=== PATIENT | male | born 1965 | race Caucasian/White ===

== ENCOUNTER 2023-06-20 00:08 | Emergency (ER) | payer BC, SELFPAY ==
[2023-06-20] VITALS (10 sets, daily range): BP systolic 125–143; BP diastolic 74–98; PULSE 81–122; RESP 18; TEMP 36.6; O2SAT 93–98; BMI 26.3
[2023-06-20 00:53] LABS: Basophils Absolute Auto 0.03 K/uL (0.00-0.30); Basophils Percent Auto 0.5 % (0.0-3.0); Eosinophils Absolute Auto 0.27 K/uL (0.00-0.50); Eosinophils Percent Auto 4.6 % (0.0-7.0); Hematocrit 45.6 % (37.0-53.0); Hemoglobin* 15.5 gm/dL (13.5-17.5); Immature Granulocytes Abs Auto 0.05 K/uL (0.00-0.30); Immature Granulocytes Pct Auto 0.8 %; Lymphocytes Absolute Auto 1.54 K/uL (0.90-2.90); Lymphocytes Percent Auto 26.1 % (20-44); Mean Corpuscular HGB Conc 34 gm/dL (32-36); Mean Corpuscular Hemoglobin 28 pg (26-34); Mean Corpuscular Volume 83 fL (80-100); Monocytes Percent Auto 10.7 % (0.0-11.0); Neutrophils Absolute Auto 3.38 K/uL (1.7-7.0); Neutrophils Percent Auto 57.3 % (42.0-72.0); Platelet Count* 194 K/uL (140-440); Red Blood Count 5.51 m/uL (4.30-5.90)
[2023-06-20 00:58] LABS: Slide Review Reflex No
[2023-06-20 01:09] LABS: Chloride* 110 mmol/L (96-114); Potassium* 3.7 mmol/L (3.6-5.1); Sodium* 143 mmol/L (135-149)
[2023-06-20 01:11] LABS: Creatinine* 0.9 mg/dL (0.5-1.5); Estimated Glomerular Filt Rate 100 ml/min
[2023-06-20 01:12] LABS: Anion Gap 10 mEq/L (7-15); Blood Urea Nitrogen* 19 mg/dL (7-30); Carbon Dioxide* 23 mmol/L (20-32); Glucose* 130 mg/dL (60-115)
[2023-06-20 01:15] LABS: D Dimer Quantitative* < 0.27 ug/ml (0.00-0.50)
[2023-06-20 01:27] LABS: Troponin I* < 0.01 ng/mL (0.01-0.04)
--- NOTE | 2023-06-20 01:37 | ED.GENADULT ---
HPI - General Adult General Date Seen: 06/20/23 Chief complaint: Arrhythmia/Palpitations Stated complaint: heart palpitations and high blood pressure Time Seen by Provider: 06/20/23 00:44 Source: patient and family Mode of arrival: ambulatory Limitations: no limitations History of Present Illness HPI narrative: Patient is a 58-year-old male who is getting ready for bed this evening when he noticed his heart wrap up in start going fast. This happened while rolling over in bed. This is happen before and only lasted for a few seconds but this is been persistent for over an hour. No shortness of breath or chest pain. No history of documented atrial fibrillation. He has recently found in the clinic to be overtreated for his hypothyroidism and his dose was lowered. He currently denies any other symptoms of hyperthyroidism. 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 and famotidine 40 mg at bedtime. He does take Crestor 20 mg daily for hyperlipidemia. Related Data Home Medications Medication Instructions Recorded Confirmed famotidine 40 mg tablet 40 mg PO QPM 06/20/23 06/20/23 levothyroxine 100 mcg tablet 100 mcg PO QAM disorder of thyroid 06/20/23 06/20/23 gland omeprazole 40 mg capsule,delayed 40 mg PO BID 06/20/23 06/20/23 release rosuvastatin 20 mg tablet 20 mg PO QPM cholesterol 06/20/23 06/20/23 Previous Rx's Medication Instructions Recorded metoprolol succinate 50 mg 50 mg PO DAILY #30 tabs 06/20/23 tablet,extended release 24 hr (Toprol XL) Allergies Allergy/AdvReac Type Severity Reaction Status Date / Time No Known Drug Allergies Allergy Verified 06/20/23 00:39 Review of Systems Narrative: Review of systems is outlined above otherwise noted to be negative. PFSH PFSH Social History Smoking Status: Never smoker Do you use any of these nicotine containing products: None How often do you have a drink containing alcohol: never AUDIT-C Alcohol total score: 0 Non-prescribed substance use: denies use Exam Narrative: Exam Narrative: Vitals noted. HEENT: Conjunctiva clear. Neck is supple without adenopathy, thyromegaly, carotid bruit. Lungs: Clear to auscultation in all green. No wheezes, rales, rhonchi. Heart: Irregularly irregular rate and rhythm without murmur. Abdomen: Soft and nontender. No guarding, rigidity, rebound. Bowel sounds are normal. No palpable masses. Extremities: No cyanosis or edema. Good distal pulses. Skin: No abnormalities noted of the exposed skin. Neurologic: Awake, alert, fully oriented. Neurologic exam is nonfocal. Const: Vital Signs, click to edit/add: Vital Signs - 24 hr 06/20/23 00:37 06/20/23 00:42 06/20/23 00:46 Temperature 97.9 F Pulse Rate 116 H Pulse Rate [Pulse Oximeter] 122 H Respiratory Rate 18 Blood Pressure 142/89 H Blood Pressure [Ri ght Upper Arm] 143/98 H Pulse Oximetry 98 98 94 Oxygen Delivery Me thod Room Air 06/20/23 00:47 06/20/23 01:00 06/20/23 01:01 Temperature Pulse Rate 109 H 106 H Pulse Rate [Pulse Oximeter] Respiratory Rate Blood Pressure 125/94 H Blood Pressure [Ri ght Upper Arm] Pulse Oximetry 94 95 Oxygen Delivery Me thod 06/20/23 01:15 06/20/23 01:16 06/20/23 01:55 Temperature 97.9 F Pulse Rate 81 88 Pulse Rate [Pulse Oximeter] 84 Respiratory Rate 18 Blood Pressure 134/95 H Blood Pressure [Ri ght Upper Arm] 125/74 Pulse Oximetry 93 93 98 Oxygen Delivery Me thod Room Air 06/20/23 01:57 Temperature 97.9 F Pulse Rate Pulse Rate [Pulse Oximeter] 84 Respiratory Rate 18 Blood Pressure Blood Pressure [Ri ght Upper Arm] 125/74 Pulse Oximetry Oxygen Delivery Me thod Course Course ED Course: Patient seen and examined. Labs are ordered. EKG shows atrial fibrillation with a rate of around 120. No acute ST or T-wave changes. Reevaluation(s) Reevaluation #1: Patient converted spontaneously to normal sinus rhythm with a rate of 81. Again no ST or T-wave changes noted. Vital Signs Vital signs: Initial Vital Signs Temperature 97.9 F 06/20/23 00:37 Temperature Source Temporal Artery Scan 06/20/23 00:37 Pulse Rate 122 H 06/20/23 00:37 Pulse Rhythm Irregular 06/20/23 00:37 Respiratory Rate 18 06/20/23 00:37 Blood Pressure 143/98 H 06/20/23 00:37 Blood Pressure Mean 113 H 06/20/23 00:37 Blood Pressure Position Sitting 06/20/23 00:37 Pulse Oximetry 98 06/20/23 00:37 Oxygen Delivery Method Room Air 06/20/23 00:37 Vital Signs Temperature 97.9 F 06/20/23 00:37 Pulse Rate 122 H 06/20/23 00:37 Respiratory Rate 18 06/20/23 00:37 Blood Pressure 143/98 H 06/20/23 00:37 Pulse Oximetry 98 06/20/23 00:37 Oxygen Delivery Method Room Air 06/20/23 00:37 Temperature 97.9 F 06/20/23 01:57 Pulse Rate 84 06/20/23 01:57 Respiratory Rate 18 06/20/23 01:57 Blood Pressure 125/74 06/20/23 01:57 Pulse Oximetry 98 06/20/23 01:55 Oxygen Delivery Method Room Air 06/20/23 01:55 Medical Decision Making MDM Narrative Medical decision making narrative: We discussed that he is going to need some follow-up to determine the frequency of his atrial fibrillation and whether not to anticoagulate. With his history of Sylvester's esophagus he cannot take aspirin. At this time with his short interval of atrial fibrillation have opted not to anticoagulate. We will provide some blood pressure and rate control with Toprol-XL 50 mg daily. He will have close follow-up with his PCP in the clinic. He and his are in agreement with this plan. Lab Data Labs: Lab Results 06/20/23 Range/Units 00:35 WBC 5.90 (4.50-11.00) K/uL RBC 5.51 (4.30-5.90) m/uL Hgb 15.5 (13.5-17.5) gm/dL Hct 45.6 (37.0-53.0) % MCV 83 (80-100) fL MCH 28 (26-34) pg MCHC 34 (32-36) gm/dL RDW Coeff of Robert 13.0 (11.5-15.5) % Plt Count 194 (140-440) K/uL Neut % (Auto) 57.3 (42.0-72.0) % Lymph % (Auto) 26.1 (20-44) % [place] % (Auto) 10.7 (0.0-11.0) % Eos % (Auto) 4.6 (0.0-7.0) % Baso % (Auto) 0.5 (0.0-3.0) % Neut # (Auto) 3.38 (1.7-7.0) K/uL Lymph # (Auto) 1.54 (0.90-2.90) K/uL [place] # (Auto) 0.60 (0.00-0.90) K/UL Eos # (Auto) 0.27 (0.00-0.50) K/uL Baso # (Auto) 0.03 (0.00-0.30) K/uL Abs Immat Gran (auto) 0.05 (0.00-0.30) K/uL Imm/Tot Granulo (auto) 0.8 % D-Dimer Quant (PE/DVT) < 0.27 (0.00-0.50) ug/ml Sodium 143 (135-149) mmol/L Potassium 3.7 (3.6-5.1) mmol/L Chloride 110 (96-114) mmol/L Carbon Dioxide 23 (20-32) mmol/L Anion Gap 10 (7-15) mEq/L BUN 19 (7-30) mg/dL Creatinine 0.9 (0.5-1.5) mg/dL Estimated Creat Clear 93.50 Estimated GFR 100 ml/min Glucose 130 H (60-115) mg/dL Calcium 9.0 (8.4-10.6) mg/dL Troponin I < 0.01 L (0.01-0.04) ng/mL TSH 2.080 (0.270-4.20) uIU/mL POC Troponin I 0.00 L (0.01-0.04) ng/ml Discharge Plan Discharge Clinical Impression: Atrial fibrillation Patient Disposition: Home, Self-Care Condition: Improved Additional Instructions: Start Toprol-XL 50 mg daily for blood pressure and heart rate. Follow-up with your PCP to discuss Holter monitor/Zio patch, echocardiogram, cardiology follow-up. Prescriptions: New metoprolol succinate [Toprol XL] 50 mg tablet extended release 24 hr 50 mg PO DAILY Qty: 30 0RF No Action famotidine 40 mg tablet 40 mg PO QPM omeprazole 40 mg capsule,delayed release(DR/EC) 40 mg PO BID levothyroxine 100 mcg tablet 100 mcg PO QAM rosuvastatin 20 mg tablet 20 mg PO QPM Follow Up/Referrals: Blaise Whitaker MD [Primary Care Provider] - Stand Alone Forms: [email or web address] Info Instructions
== END 2023-06-20 01:57 | disposition home or self-care (01) ==
PROVIDERS: Emergency Provider Family Medicine; PCP Family Medicine
DX: I48.91 Unspecified atrial fibrillation (principal)
CPT/HCPCS: 36415; 80048; 84443; 84484; 85025; 85379; 93005; 94761; 99282; 99284

== ENCOUNTER 2023-07-20 20:09 | Emergency (ER) | payer BC, SELFPAY ==
[2023-07-20 20:15] VITALS: BP 145/87; PULSE 105; RESP 16; TEMP 37.1; O2SAT 94; BMI 26.1
--- NOTE | 2023-07-20 20:23 | ED_ITS ---
HPI - General Adult General Time Seen by Provider: 20:23 Date Seen: 07/20/23 Chief complaint: Arrhythmia/Palpitations Stated complaint: heart arrhythmia Time Seen by Provider: 07/20/23 20:21 Source: patient Mode of arrival: ambulatory Limitations: no limitations History of Present Illness HPI narrative: 58-year-old male who presents today with palpitations. Patient notes his heart rate has been elevated all day today. He he has had when he describes as a viral illness for the last 2 days with body aches, low-grade fevers, nausea. He denies cough, breathing difficulty, chest pain, vomiting, diarrhea. Has had fatigue and decreased appetite. Denies urinary symptoms. Took Tylenol about 4 hours ago. Related Data Home Medications Medication Instructions Recorded Confirmed famotidine 40 mg tablet 40 mg PO QPM 06/20/23 07/20/23 levothyroxine 100 mcg tablet 100 mcg PO QAM disorder of thyroid 06/20/23 07/20/23 gland omeprazole 40 mg capsule,delayed 40 mg PO BID 06/20/23 07/20/23 release rosuvastatin 20 mg tablet 20 mg PO QPM cholesterol 06/20/23 07/20/23 Previous Rx's Medication Instructions Recorded metoprolol succinate 50 mg 50 mg PO DAILY #30 tabs 06/20/23 tablet,extended release 24 hr (Toprol XL) Allergies Allergy/AdvReac Type Severity Reaction Status Date / Time No Known Drug Allergies Allergy Verified 06/20/23 00:39 [facility] Social History Smoking Status: Never smoker Do you use any of these nicotine containing products: None How often do you have a drink containing alcohol: never AUDIT-C Alcohol total score: 0 Non-prescribed substance use: denies use Exam Narrative: Exam Narrative: General: Well-developed and well-nourished, no acute distress Head: Atraumatic and normocephalic Eyes: Pupils are equal reactive, extraocular motions intact, conjunctiva clear ENT: External nose and ears are normal, posterior pharynx without erythema or exudate Neck: No midline cervical tenderness, full spontaneous range of motion the neck, trachea midline, no adenopathy Heart: Tachycardic but regular Lungs: Clear to auscultation bilaterally without wheezes or crackles Abdomen: Soft, nontender, nondistended with active bowel sounds Musculoskeletal: No tenderness, deformity, or edema Neurologic: Awake, alert, and oriented x3, no gross focal neurologic deficits, cranial nerves intact as tested Psych: Mood and affect are appropriate Skin: No rashes Const: Vital Signs, click to edit/add: Vital Signs - 24 hr 07/20/23 20:15 07/20/23 20:24 07/20/23 20:32 Temperature 98.8 F Pulse Rate 106 H 100 Pulse Rate [Pulse Oximeter] 105 H Respiratory Rate 16 16 16 Blood Pressure 136/89 127/85 Blood Pressure [Ri ght Upper Arm] 145/87 H Pulse Oximetry 94 94 94 Oxygen Delivery Me thod Room Air 07/20/23 20:52 07/20/23 21:02 07/20/23 21:32 Temperature Pulse Rate 97 89 86 Pulse Rate [Pulse Oximeter] Respiratory Rate 16 16 16 Blood Pressure 125/86 128/80 124/82 Blood Pressure [Ri ght Upper Arm] Pulse Oximetry 94 95 98 Oxygen Delivery Me thod Course Course ED Course: Patient seen and examined, prior records are reviewed. Reviewed prior emergency department visit when patient was diagnosed with atrial fibrillation and started on metoprolol 50 mg daily. Patient presents today with fast heart rate, says it does not feel like atrial fibrillation. Monitoring EKG both confirm sinus tachycardia. Has noted fever, body aches, decreased appetite. His tachycardia likely is related to febrile illness. Labs ordered along with fluids, chest x- ray. No chest pain or shortness of breath, however patient does have a history of malignancy and so D-dimer will be ordered. Reevaluation(s) Time of Reevaluation #1: 21:15 Reevaluation #1: Heart rate improved to 80s. Chest x-ray independently interpreted by me negative for acute findings. Labs are pending. Time of Reevaluation #2: 21:59 Reevaluation #2: Labs independently interpreted by me with mild leukocytosis, negative D-dimer, normal basic metabolic panel, urinalysis not consistent with infection, lactate normal. Heart rate now in the 80s, symptoms are likely related to febrile illness and dehydration, plan for discharge Time of Reevaluation #3: 22:29 Reevaluation #3: COVID, RSV, and influenza are negative. Patient presents with body aches, subjective fever at home, and tachycardia. No focal findings on exam, lungs are clear, no sore throat to suggest strep throat, no abdominal pain or tenderness to suggest intra-abdominal infection or pathology, no dysuria, no rashes or joint swelling to suggest septic arthritis. Mild elevation in the white blood cell count but labs otherwise reassuring, chest x-ray negative, COVID influenza are negative. Heart rate improved after fluids. Patient is stable for discharge with outpatient follow-up with primary care. Vital Signs Vital signs: Initial Vital Signs Temperature 98.8 F 07/20/23 20:15 Temperature Source Temporal Artery Scan 07/20/23 20:15 Pulse Rate 105 H 07/20/23 20:15 Respiratory Rate 16 07/20/23 20:15 Blood Pressure 145/87 H 07/20/23 20:15 Blood Pressure Mean 106 H 07/20/23 20:15 Blood Pressure Position Supine 07/20/23 20:15 Pulse Oximetry 94 07/20/23 20:15 Oxygen Delivery Method Room Air 07/20/23 20:15 Vital Signs Temperature 98.8 F 07/20/23 20:15 Pulse Rate 105 H 07/20/23 20:15 Respiratory Rate 16 07/20/23 20:15 Blood Pressure 145/87 H 07/20/23 20:15 Pulse Oximetry 94 07/20/23 20:15 Oxygen Delivery Method Room Air 07/20/23 20:15 Temperature 98.8 F 07/20/23 20:15 Pulse Rate 86 07/20/23 21:32 Respiratory Rate 16 07/20/23 21:32 Blood Pressure 124/82 07/20/23 21:32 Pulse Oximetry 98 07/20/23 21:32 Oxygen Delivery Method Room Air 07/20/23 20:15 Medications Administered Medications: Generic Name Dose Route Start Last Admin Trade Name Freq PRN Reason Stop Dose Admin Sodium Chloride 1,000 mls @ 1,000 mls/hr 07/20/23 20:45 07/20/23 21:42 0.9 % Sodium Chloride 1000 Ml IV 07/20/23 21:44 Infused .Q1H AARON Infusion Medical Decision Making Lab Data Labs: Lab Results 07/20/23 07/20/23 Range/Units 20:37 20:50 WBC 12.92 H (4.50-11.00) K/uL RBC 5.33 (4.30-5.90) m/uL Hgb 15.0 (13.5-17.5) gm/dL Hct 44.3 (37.0-53.0) % MCV 83 (80-100) fL MCH 28 (26-34) pg MCHC 34 (32-36) gm/dL RDW Coeff of Robert 12.9 (11.5-15.5) % Plt Count 179 (140-440) K/uL Neut % (Auto) 78.1 H (42.0-72.0) % Lymph % (Auto) 9.7 L (20-44) % [place] % (Auto) 11.1 H (0.0-11.0) % Eos % (Auto) 0.7 (0.0-7.0) % Baso % (Auto) 0.2 (0.0-3.0) % Neut # (Auto) 10.10 H (1.7-7.0) K/uL Lymph # (Auto) 1.30 (0.90-2.90) K/uL [place] # (Auto) 1.40 H (0.00-0.90) K/UL Eos # (Auto) 0.10 (0.00-0.50) K/uL Baso # (Auto) 0.00 (0.00-0.30) K/uL Abs Immat Gran (auto) 0.00 (0.00-0.30) K/uL Imm/Tot Granulo (auto) 0.2 % D-Dimer Quant (PE/DVT) < 0.27 (0.00-0.50) ug/ml Sodium 139 (135-149) mmol/L Potassium 3.9 (3.6-5.1) mmol/L Chloride 104 (96-114) mmol/L Carbon Dioxide 24 (20-32) mmol/L Anion Gap 11 (7-15) mEq/L BUN 15 (7-30) mg/dL Creatinine 0.9 (0.5-1.5) mg/dL Estimated Creat Clear 93.50 Estimated GFR 100 ml/min Glucose 130 H (60-115) mg/dL Lactate 1.0 (0.5-1.9) mmol/L Calcium 9.2 (8.4-10.6) mg/dL Magnesium 2.2 (1.5-2.6) mg/dL Urine Color Yellow (Yellow) Urine Appearance Clear (Clear) Urine pH 6.0 (5.0-8.5) Ur Specific [place] 1.020 (1.000-1.030) Urine Protein Negative (Negative) Urine Glucose (UA) Negative (Negative) Urine Ketones Negative (Negative) Urine Blood 1+ A (Negative) Urine Nitrite Negative (Negative) Urine Bilirubin Negative (Negative) Urine Urobilinogen 1.0 (0.2-1.0) Ur Leukocyte Esterase Negative (Negative) Urine RBC 0-2 (0-2) Urine WBC 0-2 (0-5) Ur Squamous Epith Cells Few (None-Few) Urine Bacteria Few A (None) SARS-CoV-2 (PCR) Negative SARS-CoV-2 (Negative) Influenza Type A (PCR) Negative PCR FLU A (Negative) Influenza Type B (PCR) Negative PCR FLU B (Negative) RSV (PCR) Negative PCR RSV (Negative) ECG Data Attestation: I personally reviewed and interpreted this ECG as follows: Prior ECG tracings: not available for review Interpretation: Independently interpreted by me performed at 8:20 a.m. p.m. demonstrates sinus tachycardia rate 104, MD 188, no acute ST elevations or depressions, normal intervals, normal axis. Compared to prior of May 2023, sinus rhythm has replaced atrial fibrillation Discharge Plan Discharge Clinical Impression: Sinus tachycardia Patient Disposition: Home, Self-Care Condition: Stable Instructions: Tachycardia (ED) Additional Instructions: Continue Tylenol for body aches and fever Make sure you are drinking plenty of fluids. Follow-up with your primary care doctor this week Discharge Diet: Regular Prescriptions: No Action famotidine 40 mg tablet 40 mg PO QPM omeprazole 40 mg capsule,delayed release(DR/EC) 40 mg PO BID levothyroxine 100 mcg tablet 100 mcg PO QAM rosuvastatin 20 mg tablet 20 mg PO QPM metoprolol succinate [Toprol XL] 50 mg tablet extended release 24 hr 50 mg PO DAILY Qty: 30 0RF Follow Up/Referrals: Blaise Whitaker MD [Primary Care Provider] - Stand Alone Forms: [employer] Info Instructions
[2023-07-20 20:24] VITALS: BP 136/89; PULSE 106; RESP 16; O2SAT 94
[2023-07-20 20:32] VITALS: BP 127/85; PULSE 100; RESP 16; O2SAT 94
--- NOTE | 2023-07-20 20:33 | CRLHL7_ITS ---
For Patients: As a result of the Cures Act, medical imaging exams and procedure reports are released immediately into your electronic medical record. You may view this report before your referring provider. If you have questions, please contact your health care provider. INDICATION: Tachycardia. Fever. COMPARISON: 04/01/2017. FINDINGS: PA and lateral views of the chest were obtained. The cardiac silhouette and pulmonary vasculature are within normal limits. The lungs are clear bilaterally. IMPRESSION: No evidence of acute pulmonary disease. Dictated by Kareem Haq MD @ 07/20/2023 9:04:01 PM (Electronically Signed)
[2023-07-20] MEDS: 0.9 % SODIUM CHLORIDE 1000 ml 1,000 ML IV (20:50)
[2023-07-20 20:52] VITALS: BP 125/86; PULSE 97; RESP 16; O2SAT 94
[2023-07-20 21:02] VITALS: BP 128/80; PULSE 89; RESP 16; O2SAT 95
[2023-07-20 21:02] LABS: Basophils Percent Auto 0.2 % (0.0-3.0); Eosinophils Percent Auto 0.7 % (0.0-7.0); Hematocrit 44.3 % (37.0-53.0); Immature Granulocytes Pct Auto 0.2 %; Lymphocytes Percent Auto 9.7 % (20-44); Mean Corpuscular HGB Conc 34 gm/dL (32-36); Mean Corpuscular Hemoglobin 28 pg (26-34); Mean Corpuscular Volume 83 fL (80-100); Monocytes Percent Auto 11.1 % (0.0-11.0); Neutrophils Percent Auto 78.1 % (42.0-72.0); Platelet Count* 179 K/uL (140-440); RDW Coefficient of Variation % 12.9 % (11.5-15.5); Red Blood Count 5.33 m/uL (4.30-5.90); White Blood Count* 12.92 K/uL (4.50-11.00)
[2023-07-20 21:02] LABS: Appearance Urine Clear (Clear); Bilirubin Urine Negative (Negative); Blood Urine 1+ (Negative); Color Urine Yellow (Yellow); Glucose Urine Negative (Negative); Ketones Urine Negative (Negative); Leukocyte Esterase Urine Negative (Negative); Nitrite Urine Negative (Negative); Protein Urine Negative (Negative)
[2023-07-20 21:18] LABS: Slide Review Reflex No
[2023-07-20 21:25] LABS: Chloride* 104 mmol/L (96-114); Potassium* 3.9 mmol/L (3.6-5.1); Sodium* 139 mmol/L (135-149)
[2023-07-20 21:28] LABS: Anion Gap 11 mEq/L (7-15); Blood Urea Nitrogen* 15 mg/dL (7-30); Carbon Dioxide* 24 mmol/L (20-32); Creatinine* 0.9 mg/dL (0.5-1.5); Estimated Glomerular Filt Rate 100 ml/min; Glucose* 130 mg/dL (60-115)
[2023-07-20 21:29] LABS: Calcium* 9.2 mg/dL (8.4-10.6)
[2023-07-20 21:31] LABS: Bacteria Urine Few; RBC Urine 0-2 (0-2); Squamous Epithelial Cell Urine Few (None-Few); WBC Urine 0-2 (0-5)
[2023-07-20 21:32] VITALS: BP 124/82; PULSE 86; RESP 16; O2SAT 98
[2023-07-20 21:32] LABS: Magnesium* 2.2 mg/dL (1.5-2.6)
[2023-07-20 21:33] LABS: D Dimer Quantitative* < 0.27 ug/ml (0.00-0.50)
[2023-07-20 22:14] LABS: PCR FLU A Negative PCR FLU A (Negative); PCR FLU B Negative PCR FLU B (Negative); PCR RSV Negative PCR RSV (Negative)
[2023-07-20 22:16] LABS: SARS PCR* Negative SARS-CoV-2 (Negative)
== END 2023-07-20 22:37 | disposition home or self-care (01) ==
PROVIDERS: Emergency Provider Family Medicine; PCP Family Medicine
DX: R00.0 Tachycardia, unspecified (principal)
CPT/HCPCS: 36415; 71046; 80048; 81001; 83605; 83735; 85025; 85379; 87086; 87631; 93005; 96360; 99284; 99285; J7030

== ENCOUNTER 2024-07-03 15:55 | Emergency (ER) | payer BC, SELFPAY ==
--- OUTSIDE RECORDS SUMMARY | 2024-07-03 15:59 | XMS_ITS | Clinical Summary ---
Author Organization [employer] [facility] Address [place], [place] [address] Care Team Providers Care Manager Merchandising Name Role Phone Blaise Whitaker MD Primary Care Provider [phone] Allergies Active Allergy Reactions Criticality Noted Date Comments Ragweed Pollen Itching,Wheezing Low 06/11/2022 Medications Medication Sig Dispensed Refills Start Date End Date Status Cholecalciferol, Vitamin D3, (VITAMIN D-3) 5,000 unit tab Take 1 tablet by mouth once daily. 0 11/10/2018 Active famotidine (PEPCID) 40 mg tablet 08/27/2022 Active omeprazole (PRILOSEC) 40 mg Delayed-Release capsuleIndications: Sylvester's esophagus with high grade dysplasia TAKE 1 PILL BY MOUTH 30-60 MINUTES BEFORE A MEAL/FOOD TWICE A DAY. 180 Capsule 06/15/2023 Active hydrOXYzine HCL (ATARAX) 25 mg tabletIndications:A nxiety Take 1 Tablet (25 mg) by mouth every 6 hours if needed for Anxiety. 25 Tablet 2 03/04/2024 Active levothyroxine (SYNTHROID) 100 mcg tabletIndications:A cquired hypothyroidism Take 1 Tablet (100 mcg) by mouth before breakfast. For thyroid. 90 Tablet 3 03/04/2024 Active rosuvastatin (CRESTOR) 20 mg tabletIndications:D yslipidemia, goal LDL below 130 Take 1 Tablet (20 mg) by mouth at bedtime. For Cholesterol. 90 Tablet 3 03/04/2024 Active metoprolol succinate (TOPROL XL) 50 mg sustained-release tabletIndications:P aroxysmal atrial fibrillation with rapid ventricular response (HC) TAKE 1 TABLET BY MOUTH EVERY DAY 90 Tablet 3 06/22/2024 Active metoprolol succinate (TOPROL XL) 50 mg sustained-release tabletIndications:P aroxysmal atrial fibrillation with rapid ventricular response (HC) Take 1 Tablet (50 mg) by mouth once daily. 90 Tablet 3 07/07/2023 4 Discontinued Active Problems Problem Noted Date Diagnosed Date Anxiety 03/06/2024 Overview (03/06/2024): Started Summer 2023. February 2024: started on hydroxyzine. Paroxysmal atrial fibrillati on with rapid ventricular response 06/29/2023 Overview (03/04/2024): May 2023: new onset, symptomatic, started on Metoprolol. Self converted in Emergency room at time of diagnosis. Paget's disease of sacrum 04/27/2023 Overview (05/11/2023): Mar 2023: Saw Dr. Christiano Nolan, and suggested no treatment needed if no symptoms, but could consider Bisphosphonate if wanted. Apr 2023: Alkaline phosphatase normal at 87. Malignant neoplasm of lower third of esophagus 0 08/30/2022 Overview (08/30/2022): July 2022: Found at [facility] on EGD. Clear Margins. [facility] recommendations for a PET scan in 3 months followed by an upper endoscopy with biopsies and possible further resection if any nodular areas are noted but otherwise then ablation. Sylvester's esophagus with high grade dysplasia Overview (05/24/2022): EGD 04/2022 Sylvester's esophagus with low and high-grade dysplasia, patient to follow-up to discuss referral to tertiary care center for treatment of Sylvester's esophagus COVID-19 virus infection 01/15/2022 Overview (01/15/2022): Aug 2021: positive home Covid-19 test. 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 Then Consult with Dr. Aguiar, further work up indicated. Jun 2019: MRI Brachial plexus normal. Routine adult health maintenance 12/24/2016 Overview (12/24/2016): Colonoscopy 12/2016 long colon repeat in 10 years. PEG -2 gallons Acquired hypothyroidism 10/27/2013 Overview (04/28/2023): Diagnosis approximately 2009. No previous thyroid imaging. Mar 2023: decreased Levothyroxine from 112, down to 100mcg with TSH running borderline low normal range. Overweight 10/27/2013 Family history of pancreatic cancer 10/27/2013 Prehypertension 10/27/2013 Dyslipidemia, goal LDL below 130 10/27/2013 Overview (01/16/2022): February 2020: LDL 205. December 2021: LDL 181. Starting Rosuvastatin (Crestor) 20mg and recheck. Encounters Date Type Department Care Team Description 06/21/2024 [facility] [address] [place] [address] Everett Anaya MD Refill Request (Metoprolol Succinate) 04/13/2024 12:07 PM CDT - 04/13/2024 11:59 PM CDT Hospital Encounter [facility] [address] [place] [address] Everett Anaya MD Paroxysmal atrial fibrillation with rapid ventricular response (HC); GRIJALVA (dyspnea on exertion); Chest pain, unspecified type; Palpitations 04/13/2024 Travel from Last 3 Months Immunizations Name Administration Dates Next Due COVID-19 vaccine (Guía Local 30mcg/0.3mL) P F, MDV 12/26/2020,12/05/2020 Influenza Virus, Unspecified 06/28/2008 Influenza, IIV4 07/19/2022 Td (Age >=7 Years) 01/03/2004 Tdap 10/27/2013 Family History Medical History Relation Name Comments Other Father age 64 Alz heimer's disease Seizures Father Heart attack Maternal Grandfather Cancer Mother Pancreatic canc er - age 65yr Cancer-breast Mother Hypertension Mother Thyroid Disease Mother hypothyroidi sm Heart attack Paternal Grandmother Relation Name Status Comments Father Maternal Grandfather Mother Paternal Grandmother Social History Tobacco Use Types Packs/Day Years Used Date Smoking Tobacco: Never Smokeless Tobacco: Never Tobacco Cessation:Counseling Given: Yes Alcohol Use Standard Drinks/Week Comments No 0 (1 standard drink = 0.6 oz pur e alcohol) PHQ-2 Answer Date Recorded PHQ-2 TOTAL SCORE 1 03/04/2024 Social Connections Answer Date Recorded Do you often feel lonely or isolated from those around you? 0 03/04/2024 Financial Resource Strain Answer Date R ecorded Difficulty of Paying Living Expenses 3 03/04/2024 Difficulty of Paying Living Expenses Not on file 03/04/2024 Food Insecurity Answer Date Recorded Do you worry your food will run out before you are able to buy more? 1 03/04/2024 Transportation Needs Answer Date Record ed Does lack of transportation keep you from medica l appointments? 1 03/04/2024 Does lack of transportation keep you from work, meetings or getting things that you need? 1 03/04/2024 Housing Stability Answer Date Recorded What is your housing situation today? 1 03/04/2024 Sex and Gender Information Value Date Recorded Sex Assigned at Male 05/10/2020 9:19 PM CDT Gender Identity Male 05/10/2020 9:19 PM CDT Sexual Orientation Not on file Obstetrics History Last Filed Vital Signs Vital Sign Reading Time Taken Comments Blood Pressure 129/79 04/13/2024 12:28 PM CDT Pulse 58 04/13/2024 12:28 PM CDT Temperature 36.8 ??C (98.3 ??F) 07/09/2021 11:[address] Respiratory Rate 16 03/16/2024 10:29 AM CDT Oxygen Saturation 100% 03/16/2024 10:29 AM CDT Inhaled Oxygen Concentration - - Weight 84.4 kg (186 lb) 03/16/2024 10:29 AM CDT Height 176.5 cm (5' 9.5) 03/16/2024 10:29 AM CD T Body Mass Index 27.07 03/16/2024 10:29 AM CDT Plan of Treatment Health Maintenance Due Date Last Done Comments HIV for age 15-65 1981 Zoster (shingles) series for age 50+ (1 of 2) 2016 Tetanus booster 10/28/2023 10/27/2013, 01/03/2004 COVID-19 vaccine series ( season) 2024 07/23/2021, 12/26/2020, 12/05/2020 Influenza for age 50-64 04/25/2024 07/19/2022, 06/28 Depression screening for age 12+ 03/04/2025 03/04/2024, 03/01/2024, 01/27/2023, Additional history exists BMI (ht and wt on same day) for age 18+ 03/16/2025 03/16/2024, 02/04/2024, 09/19/2023, Additional history exists Colonoscopy through age 75 12/24/202612/24, 12/24/2016, 12/24/2016 Lipids for age 45-75 03/04/2029 03/04/2024, 01/27/2023, 03/29/2022, Additional history exists Tdap Completed 10/27/2013 Hepatitis C screening for age 18-79 Completed 01/27/2023 Pneumococcal series for age 6-64 Aged Out No longer eligible based on patient's age to complete this topic Procedures Procedure Name Priority Date/Time Associated Diagnosis Comments CT CARDIAC CORONARY ARTERIES DUAL READ Routine 04/13/2024 12:34 PM CDT Paroxysmal atrial fibrillation with rapid ventricular response (HC) GRIJALVA (dyspnea on exertion) Chest pain, unspecified type Palpitations CREATININE,ISTAT Routine 04/13/2024 12:2 8 PM CDT LIPID PANEL W REFLEX MEASURED LDL Routine 03/04/2024 10:27 AM CDT Dyslipidemia, goal LDL below 130 LC HCV ANTIBODY RFX TO QUANT PCR Routine 01/27/2023 9:54 AM CDT Need for hepatitis C screening test COLONOSCOPY 12/24/2016 11:07 AM CDT from Last 3 Months or Most Recently Relevant to Health Maintenance Results * CT CARDIAC CORONARY ARTERIES DUAL READ (04/13/2024 12:34 PM CDT) Anatomical Region Laterality Modality HEART Computed Tomogra phy Impressions 04/14/2024 2:00 PM CDT ?? No significant incidental extracardiac findings. Please refer to weight inspector's dictation for the cardiac CT report. Narrative 04/14/2024 2:00 PM CDT Results are automatically released to your [employer]) account once available, in compliance with federal regulations. ??This means that you may see your results before your provider has had a chance to review them. ??Please allow 2-3 business days for your provider to comment on the results. CORONARY CT ANGIOGRAM, 04/13/2024 INDICATION: Dyspnea. CONCLUSIONS: This is a dual read study - please review [facility] over-read below for incidental non cardiac findings. Mild nonobstructive coronary artery disease with a single area of eccentric calcification in the proximal LAD with less than 25% stenosis. 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 Right dominant coronary artery system. Normal coronary artery origins. Coronary artery calcium score is 23, placing the patient in the 55th percentile when compared to the FRYE database. TECHNIQUE: Calcium score was performed. ECG-gated CT angiogram of the heart with intravenous contrast Omnipaque 350, 84 cc, was performed on a Siemens SOMATOM Force CT scanner. The imaging protocol was individualized to minimize radiation exposure. The following ECG-gated acquisition protocol was used: Prospective. Pulse range 280-400. Scan parameters were as follows: Tube potential: 90 KV. Tube Current: 1369 mAs. Total DLP: 133 mGy*cm; mSv: 1.9; CTDI: 12.4. Images were reconstructed at a slice thickness of 0.6 mm with 0.3 mm overlap. Image post processing was performed on a [employer] Workstation. The patient received the following medications: Nitroglycerin 0.8 mg sublingual. Average heart rate during the study was 75 BPM. No arrhythmia. There were no immediate complications. TECHNICAL QUALITY: Good. ?? FINDINGS: CALCIUM SCORE: The total [place] coronary artery calcium score is 23, which places the patient in the 55th percentile in comparisons to subjects of the same age, gender, and race/ethnicity who are free of clinical cardiovascular disease and treated diabetes in the FRYE database. Calcium score distribution is as follows: Left main 0, left anterior descending artery 22, left circumflex artery 1, right coronary artery 0. CORONARY ARTERIES: Dominance: Right dominant system. Normal origin of the coronary arteries. Left main artery: The left main coronary artery is patent without evidence of plaque or stenosis. Left anterior descending artery: The ostial LAD has eccentric calcification with less than 25% stenosis. The mid vessel has a short section of myocardial bridging. The remainder of the LAD and its branches are free of plaque or stenosis. Left circumflex artery: The left circumflex artery and its major obtuse marginal and/or posterolateral branches are patent without evidence of plaque or stenosis. Right coronary artery: The right coronary artery and its major branches are patent without evidence of plaque or stenosis. CARDIAC: Grossly normal left ventricular chamber size. Grossly normal left ventricular wall thickness. Grossly normal right ventricular chamber size. Grossly normal left and right atrial size. No obvious atrial septal defect. No evidence of left atrial appendage thrombus. No intra-cardiac mass or thrombus. No evidence of abnormal thickening or calcification of the mitral and aortic valves. Normal pericardial thickness. No pericardial effusion. VESSELS: Normal caliber of the visualized ascending and descending thoracic aorta. No evidence of aortic atherosclerosis. ??Normal pulmonary artery caliber. Normally connected pulmonary veins without stenosis or obstruction. NON-CARDIAC: Please see radiology report below for incidental non-cardiac findings. Bhaskar Armendariz MD Cardiology [facility] JJO/car For Patients: As a result of the 21st Century Cures Act, medical imaging exams and procedure reports are released immediately into your electronic medical record. You may view this report before your referring provider. If you have questions, please contact your health care provider. EXAM: OVERREAD: DETAILED RACINE RADIOLOGY EXTRACARDIAC OVERREAD OF CARDIAC CT LOCATION: [facility] DATE: 04/13/2024 INDICATION: Cardiac-chest pain-low to intermediate probability. TECHNIQUE: Dose reduction techniques were used. COMPARISON: 03/21/2023. FINDINGS: ?? LIMITED CHEST: Negative. LIMITED MEDIASTINUM: Negative. LIMITED UPPER ABDOMEN: Negative. Everett Anaya MD CT * (ABNORMAL) CREATININE,ISTAT (04/13/2024 12:28 PM CDT) CREATININE, POCT 1.20(H) 0.57 - 1.11 mg/dL 04/13/2024 12:31 PM CDT [facility] Comment:Caution: Patients ta froylan Hydroxyurea have falsely increased iStat Creatinine results. Verify creatinine results ordering a Creatinine (32442.2) eGFR 71(L) >90 mL/min/1.7 3m2 04/13/2024 12:31 PM CDT [facility] Comment:As of 2021, eG FR is calculated by the CKD-EPI creatinine equation without race adjustment. eGFR can be influenced by muscle mass, exercise, and diet. The reported eGFR is an estimation only and is only applicable if the renal function is stable. Blood BLOOD SPECIMEN / Unknown 04/13/2024 12:28 PM CDT 04/13/2024 12:31 PM CDT Everett Anaya MD CHEMISTRY [facility] [place] INTERNAL ZIP [id number] [place] [address] * (ABNORMAL) LIPID PANEL W REFLEX MEASURED LDL (03/04/2024 10:27 AM CDT) CHOLESTEROL,TOTAL 142 100 - 199 mg/dL 03/04/2024 6:05 PM CDT [facility] Comment: Cholesterol, Total Reference Ranges Desirable <200 mg/dL Borderline 200-239 mg/dL High >=240 mg/dL TRIGLYCERIDES 100 <150 mg/dL 03/04/2024 6:05 PM CDT [facility] HDL CHOLESTEROL 40(L) >40 mg/dL 6:05 PM CDT [facility] NON-HDL CHOLESTEROL 102 <145 mg/dl 03/04/2024 6:05 PM CDT [facility] CHOL/HDL RATIO 3.55 <4.50 03/04/2024 6:05 PM T [facility] LDL CHOLESTEROL 82 <=130 mg/dL 03/04/2024 6:05 PM CDT [facility] VLDL CHOLESTEROL 20 <=30 mg/dL 03/04/2024 6:05 PM CDT [facility] PROVIDER ORDERED STATUS RANDOM 03/04/2024 6:05 PM CDT [facility] Blood BLOOD SPECIMEN / Unknown Venipuncture / Unknown 03/04/2024 10:27 AM CDT 03/04/2024 10:27 AM CDT Blaise Whitaker MD CHEMISTRY [facility] [address] [place] [id number], * LC HCV ANTIBODY RFX TO QUANT PCR (01/27/2023 9:54 AM CDT) HCV Ab Non Reactive Non Reactive 01/29/2023 9:06 PM CDT [facility] Blood BLOOD SPECIMEN / Unknown Venipuncture / Unknown 01/27/2023 9:54 AM CDT 01/27/2023 9:59 AM CDT Narrative [facility] - 01/29/2023 9:06 PM CDT Performed at: ??[address] ??[id number] Information Technology Assistant: Juan Ulloa MD, Phone: ??[phone] Blaise Whitaker MD LABORATORY [facility] ([facility]) [address] [place] [id number], * COLONOSCOPY (12/24/2016 11:07 AM CDT) 12/24/2016 11:0 7 AM CDT Narrative Transcriptions Norman Jeffrey MD - 12/24/2016 12:09 PM CDT Patient Name: Garth Prasad Procedure Date: 12/24/2016 Gender: Male Date of : 1965 Admit Type: Outpatient Procedure: Colonoscopy Proceduralist: Norman Jeffrey MD , Zahida Jaramillo (Nurse) Indications/Pre-Op Diagnosis: Screening for colorectal malignant neoplasm, This is the patient's first colonoscopy Medications: Fentanyl 100 micrograms IV, Midazolam 4 mgIV, The level of sedation administered wasmoderate Procedure Description: The patient had risks, benefits and alternatives explained to andgave informed consent. The patient had a stable cardiopulmonary status and judged an adequate candidate for conscious sedation. The [id number] was passed through the anus and advanced tothe cecum, identified by appendiceal orifice and ileocecal valve. The colonoscopy was performed without difficulty. The patient toleratedthe procedure well. The quality of the bowel preparation was good. The ileocecal valve, appendiceal orifice, and rectum were photographed. Complications: No immediate complications. Estimated Blood Loss & Specimen: Estimated blood loss: none. Specimen collected - None Findings: The perianal and digital rectal examinations were normal. The entire examined colon appeared normal on direct and retroflexion views. Impressions/Post-Op Diagnosis: - The entire examined colon is normal on direct and retroflexionviews. - No specimens collected. Recommendation: - Patient has a contact number available for emergencies. The signsand symptoms of potential delayed complications were discussed with the patient. Return to normal activities tomorrow. Written discharge instructions were provided to the patient. - Resume previous diet. - Continue present medications. - Repeat colonoscopy in 10 years for screening purposes. Moderate Sedation: Moderate (conscious) sedation was administered by the endoscopy nurse and supervised by the endoscopist. The following parameters were monitored: oxygen saturation, heart rate, respiratory rate, blood pressure, adequacy of pulmonary ventilation and reponse to care. Please refer to the the medical centeren'ts medical record flowsheets and nursing notes for moderate sedation details. Total physician intraservice time was 18 minutes. Norman Jeffrey MD 12/24/2016 12:09:42 PM This report has been signed electronically. Note Initiated On: 12/24/2016 11:07 AM Scope In: 11:48:46 AM Scope Withdrawal Time 0 hours 8 minutes 26 seconds Scope Out: 12:03:33 PM Norman Jeffrey MD PROCEDURE ORD from Last 3 Months or Most Recently Relevant to Health Maintenance Care Teams Manager Merchandising Relationship Specialty Start Date End Date Blaise Whitaker MD [address] [place] [address] PCP - General Family Practice 01/27/23
[2024-07-03 16:12] VITALS: BP 141/92; PULSE 77; RESP 18; TEMP 37.2; O2SAT 95; BMI 25.8
[2024-07-03 16:46] LABS: Basophils Absolute Auto 0.04 K/uL (0.00-0.30); Basophils Percent Auto 0.6 % (0.0-3.0); Eosinophils Percent Auto 1.5 % (0.0-7.0); Hematocrit 45.6 % (37.0-53.0); Hemoglobin* 15.4 gm/dL (13.5-17.5); Immature Granulocytes Abs Auto 0.02 K/uL (0.00-0.30); Immature Granulocytes Pct Auto 0.3 %; Lymphocytes Percent Auto 14.4 % (20-44); Mean Corpuscular HGB Conc 34 gm/dL (32-36); Mean Corpuscular Hemoglobin 28 pg (26-34); Mean Corpuscular Volume 83 fL (80-100); Monocytes Percent Auto 10.3 % (0.0-11.0); Neutrophils Percent Auto 72.9 % (42.0-72.0); Platelet Count* 191 K/uL (140-440); RDW Coefficient of Variation % 12.8 % (11.5-15.5); White Blood Count* 6.68 K/uL (4.50-11.00)
[2024-07-03 16:52] LABS: Slide Review Reflex No
--- NOTE | 2024-07-03 17:04 | ED_ITS ---
HPI - General Adult General Date Seen: 07/03/24 Chief complaint: Arrhythmia/Palpitations Stated complaint: Elevated heartrate, high BP Time Seen by Provider: 07/03/24 16:19 Source: patient Mode of arrival: ambulatory Limitations: no limitations History of Present Illness HPI narrative: Patient is a 59-year-old with history of atrial fibrillation around a year ago, who comes in because of difficulty with his heart rate today. He says he was out for a bike ride and his heart rate which would normally be in the 120s was in the 160s. He just could not get it back under control. He says this has happened a couple times previously this year. He does have a electronic drafter, he had a ZIO patch in August of this year which she says showed a couple short runs of SVT but no AFib at that time. He says he has had an echo as well as a coronary CT angiogram, all of which was reassuring. He says his electronic drafter asked him to let him know if he was continuing to have problems. He had sympt oms like today back in May but did not think much of it because he had not eaten anything that day and thought that was the cause. Today however he had eaten and was still having trouble with higher than normal heart rates. He has a cardia machine at home, did not document any atrial fibrillation. He noted his blood pressure was elevated as well as high as 180 systolic although it came down to 150 systolic without intervention. He does take 50 mg of daily metoprolol which was started back when he had his episode of atrial fibrillation. He tolerates that well. He denies any substance use, does not smoke or drink. He has a small amount of caffeine in the morning but nothing excessive, no energy drinks. He has otherwise been feeling well. Related Data Home Medications ?Medication ?Instructions ?Recorded ?Confirmed famotidine 40 mg tablet 40 mg PO QPM 06/20/23 07/20/23 levothyroxine 100 mcg tablet 100 mcg PO QAM disorder of thyroid 06/20/23 07/20/23 gland omeprazole 40 mg capsule,delayed 40 mg PO BID 06/20/23 07/20/23 release rosuvastatin 20 mg tablet 20 mg PO QPM cholesterol 06/20/23 07/20/23 Previous Rx's ?Medication ?Instructions ?Recorded metoprolol succinate 50 mg 50 mg PO DAILY #30 tabs 06/20/23 tablet,extended release 24 hr (Toprol XL) Allergies Allergy/AdvReac Type Severity Reaction Status Date / Time No Known Drug Allergies Allergy Verified 07/03/24 16:12 Review of Systems Status of ROS: Reports: 6 or more systems reviewed and unremarkable except as noted in History and below [facility] Social History Smoking Status: Never smoker Do you use any of these nicotine containing products: None How often do you have a drink containing alcohol: never AUDIT-C Alcohol total score: 0 Non-prescribed substance use: denies use Exam Narrative: Exam Narrative: Vital signs reviewed In general, alert, nontoxic middle-aged male. Head: Normocephalic, atraumatic. Eyes: Sclera clear. Pupils equal and reactive. ENT: Mucous membranes moist. Neck: Supple without adenopathy. Heart: Regular rate and rhythm without murmur. Lungs: Clear. No increased work of breathing, crackles or wheezes. Abdomen: Soft, nontender to palpation. Extremities: Well perfused, pulses intact. No significant edema. Neurologic: Alert, conversant. Speech fluent, face symmetric. Moves all extremities equally. Skin: Warm, dry well perfused. Affect: Normal. Const: Vital Signs, click to edit/add: Vital Signs - 24 hr 07/03/24 16:12 Temperature 98.9 F Pulse Rate [Pulse Oximeter] 77 Respiratory Rate 18 Blood Pressure [Le ft Upper Arm] 141/92 H Pulse Oximetry 95 Oxygen Delivery Me thod Room Air Documenting provider has reviewed patient's vital signs: yes Course Course ED Course: Patient appear to be in sinus rhythm on the monitor. An EKG showed a sinus rhythm, ventricular rate of 80 beats per minute. Morphology appears unchanged compared to previous EKG. QT corrected is 435 milliseconds. Will maintain on a monitor and check some basic labs. Discussed with him that I may not have an answer as to why he is sometimes having elevated heart rates. It might be reasonable to have him wear a ZIO patch again and see if he is having more sustained SVT. He could reasonably discuss this with his electronic drafter through [facility]. Labs today are normal, white blood cell count is 6.7, hemoglobin is 15.4 normal platelets normal electrolytes normal BUN creatinine, normal calcium normal magnesium. TSH of 0.73. I have reviewed with him that his labs and EKG are re assuring. Etiology of his symptoms is unclear, I do think it might be reasonable to reconsider a ZIO patch and Avastin to talk with his electronic drafter about this. I also discussed that if he runs into days where he feels like his heart rate is faster than he is used to he can certainly take an extra dose of metoprolol as long as his blood pressure is not running low. Discharged home, return as needed for persistent tachycardia particularly if associated with shortness of breath, chest pain, fainting or other worsening. Otherwise, follow-up with primary care Cardiology to further discuss concerns. Vital Signs Vital signs: Initial Vital Signs Temperature 98.9 F 07/03/24 16:12 Temperature Source Temporal Artery Scan 07/03/24 16:12 Pulse Rate 77 07/03/24 16:12 Pulse Rhythm Regular 07/03/24 16:12 Respiratory Rate 18 07/03/24 16:12 Blood Pressure 141/92 H 07/03/24 16:12 Blood Pressure Mean 108 H 07/03/24 16:12 Blood Pressure Position Semi-Fowlers 07/03/24 16:12 Pulse Oximetry 95 07/03/24 16:12 Oxygen Delivery Method Room Air 07/03/24 16:12 Vital Signs Temperature 98.9 F 07/03/24 16:12 Pulse Rate 77 07/03/24 16:12 Respiratory Rate 18 07/03/24 16:12 Blood Pressure 141/92 H 07/03/24 16:12 Pulse Oximetry 95 07/03/24 16:12 Oxygen Delivery Method Room Air 07/03/24 16:12 Temperature 98.9 F 07/03/24 16:12 Pulse Rate 77 07/03/24 16:12 Respiratory Rate 18 07/03/24 16:12 Blood Pressure 141/92 H 07/03/24 16:12 Pulse Oximetry 95 07/03/24 16:12 Oxygen Delivery Method Room Air 07/03/24 16:12 Medical Decision Making Lab Data Labs: Lab Results 07/03/24 Range/Units 16:40 WBC 6.68 (4.50-11.00) K/uL RBC 5.50 (4.30-5.90) m/uL Hgb 15.4 (13.5-17.5) gm/dL Hct 45.6 (37.0-53.0) % MCV 83 (80-100) fL MCH 28 (26-34) pg MCHC 34 (32-36) gm/dL RDW Coeff of Robert 12.8 (11.5-15.5) % Plt Count 191 (140-440) K/uL Neut % (Auto) 72.9 H (42.0-72.0) % Lymph % (Auto) 14.4 L (20-44) % Throckmorton % (Auto) 10.3 (0.0-11.0) % Eos % (Auto) 1.5 (0.0-7.0) % Baso % (Auto) 0.6 (0.0-3.0) % Neut # (Auto) 4.90 (1.7-7.0) K/uL Lymph # (Auto) 1.00 (0.90-2.90) K/uL Throckmorton # (Auto) 0.70 (0.00-0.90) K/UL Eos # (Auto) 0.10 (0.00-0.50) K/uL Baso # (Auto) 0.04 (0.00-0.30) K/uL Abs Immat Gran (auto) 0.02 (0.00-0.30) K/uL Imm/Tot Granulo (auto) 0.3 % Sodium 137 (135-149) mmol/L Potassium 4.8 (3.6-5.1) mmol/L Chloride 99 (96-114) mmol/L Carbon Dioxide 28 (20-32) mmol/L Anion Gap 10 (7-15) mEq/L BUN 20 (7-30) mg/dL Creatinine 1.2 (0.5-1.5) mg/dL Estimated Creat Clear 69.28 Estimated GFR 70 ml/min Glucose 94 (60-115) mg/dL Calcium 9.5 (8.4-10.6) mg/dL Magnesium 2.3 (1.5-2.6) mg/dL TSH 0.734 (0.270-4.200) uIU/mL Discharge Plan Discharge Clinical Impression: Palpitations Patient Disposition: Home, Self-Care Condition: Improved Instructions: Atrial Tachycardia (DC) Additional Instructions: Your labs are all normal today. Your EKG is reassuring as well. It may be reasonable to repeat a ZIO patch to see if you are having more sustained runs of SVT at times. I would discuss this with your electronic drafter or your primary care doctor to arrange. Return any time for persistent tachycardia particularly if associated with shortness of breath, chest pain, fainting or other acute symptoms. Prescriptions: No Action famotidine 40 mg tablet 40 mg PO QPM omeprazole 40 mg capsule,delayed release(DR/EC) 40 mg PO BID levothyroxine 100 mcg tablet 100 mcg PO QAM rosuvastatin 20 mg tablet 20 mg PO QPM metoprolol succinate [Toprol XL] 50 mg tablet extended release 24 hr 50 mg PO DAILY Qty: 30 0RF Follow Up/Referrals: Blaise Whitaker MD [Primary Care Provider] - Stand Alone Forms: Pretty Padded Room Info Instructions
[2024-07-03 17:05] LABS: Chloride* 99 mmol/L (96-114); Potassium* 4.8 mmol/L (3.6-5.1); Sodium* 137 mmol/L (135-149)
[2024-07-03 17:07] LABS: Creatinine* 1.2 mg/dL (0.5-1.5); Est. Creatinine Clearance* 69.28; Estimated Glomerular Filt Rate 70 ml/min
[2024-07-03 17:08] LABS: Anion Gap 10 mEq/L (7-15); Blood Urea Nitrogen* 20 mg/dL (7-30); Calcium* 9.5 mg/dL (8.4-10.6); Carbon Dioxide* 28 mmol/L (20-32); Glucose* 94 mg/dL (60-115); Magnesium* 2.3 mg/dL (1.5-2.6)
--- OUTSIDE RECORDS SUMMARY | 2024-07-03 17:28 | XMS_ITS | Clinical Summary ---
Author Organization [facility] Address [place], [place] [address] Care Team Providers Care Renal Dietitian Name Role Phone Blaise Whitaker MD Primary Care Provider [phone] Allergies Active Allergy Reactions Criticality Noted Date [...] 08/30/2022 Overview (08/30/2022): July 2022: Found at [facility] on [facility]. Clear Margins. [facility] recommendations for a PET scan in 3 [...] Type Department Care Team Description [facility]/20[facility] [address] [place] [address] Everett Anaya MD Refill Request (Metoprolol Succinate) 04/13/2024 12:07 PM CDT - 04/13/2024 11:59 PM CDT Hospital Encounter [facility] [address] [place] [address] Everett Anaya MD Paroxysmal atrial fibrillation with rapid ventricular response (HC); GRIJALVA (dyspnea on exertion); Chest pain, unspecified type; Palpitations 04/13/2024 Travel from Last 3 Months Immunizations Name Administration Dates Next Due COVID-19 vaccine (Andel 30mcg/0.3mL) P F, MDV 12/26/2020,12/05/2020 Influenza Virus, [...] significant incidental extracardiac findings. Please refer to brim rounder's dictation for the cardiac CT report. Narrative 04/14/2024 2:00 PM CDT Results are automatically released to your [employer]) account once available, in compliance with federal regulations. ??This means that you may see your results before your provider has had a chance to review them. ??Please allow 2-3 business days for your provider to comment on the results. CORONARY CT ANGIOGRAM, 04/13/2024 INDICATION: Dyspnea. CONCLUSIONS: This is a dual read study - please review [facility] over-read below for incidental non cardiac [...] Image post processing was performed on a [employer]ox Workstation. The patient received the following medications: [...] incidental non-cardiac findings. Bhaskar Armendariz MD Cardiology [facility] JJO/car For Patients: As a result of the 21st Century Cures Act, medical imaging exams and procedure reports are released immediately into your electronic medical record. You may view this report before your referring provider. If you have questions, please contact your health care provider. EXAM: OVERREAD: DETAILED [facility] EXTRACARDIAC OVERREAD OF CARDIAC CT LOCATION: [facility] DATE: 04/13/2024 INDICATION: Cardiac-chest pain-low to intermediate probability. TECHNIQUE: Dose reduction techniques were used. COMPARISON: 03/21/2023. FINDINGS: ?? LIMITED CHEST: Negative. LIMITED MEDIASTINUM: Negative. LIMITED UPPER ABDOMEN: Negative. Everett Anaya MD CT * (ABNORMAL) CREATININE,ISTAT (04/13/2024 12:28 PM CDT) CREATININE, POCT 1.20(H) 0.57 - 1.11 mg/dL 04/13/2024 12:31 PM CDT [facility] Comment:Caution: Patients ta froylan Hydroxyurea have falsely increased iStat Creatinine results. Verify creatinine results ordering a Creatinine (14583.2) eGFR 71(L) >90 mL/min/1.7 3m2 04/13/2024 12:31 PM CDT [facility] Comment:As of 2021, eG FR is calculated by the CKD-EPI creatinine equation without race adjustment. eGFR can be influenced by muscle mass, exercise, and diet. The reported eGFR is an estimation only and is only applicable if the renal function is stable. Blood BLOOD SPECIMEN / Unknown 04/13/2024 12:28 PM CDT 04/13/2024 12:31 PM CDT Everett Anaya MD CHEMISTRY [facility] SENDOUT INTERNAL ZIP [id number] [place] [address] * (ABNORMAL) LIPID PANEL W REFLEX MEASURED LDL (03/04/2024 10:27 AM CDT) CHOLESTEROL,TOTAL 142 100 - 199 mg/dL 03/04/2024 6:05 PM CDT [facility] Comment: Cholesterol, Total Reference Ranges Desirable <200 mg/dL Borderline 200-239 mg/dL High >=240 mg/dL TRIGLYCERIDES 100 <150 mg/dL 03/04/2024 6:05 PM CDT [facility] HDL CHOLESTEROL 40(L) >40 mg/dL 6:05 PM CDT [facility] NON-HDL CHOLESTEROL 102 <145 mg/dl 03/04/2024 6:05 PM CDT [facility] CHOL/HDL RATIO 3.55 <4.50 03/04/2024 6:05 PM T [facility] LDL CHOLESTEROL 82 <=130 mg/dL 03/04/2024 6:05 PM CDT [facility] VLDL CHOLESTEROL 20 <=30 mg/dL 03/04/2024 6:05 PM CDT [facility] PROVIDER ORDERED STATUS RANDOM 03/04/2024 6:05 PM CDT [facility] Blood BLOOD SPECIMEN / Unknown Venipuncture / Unknown 03/04/2024 10:27 AM CDT 03/04/2024 10:27 AM CDT Blaise Whitaker MD CHEMISTRY [facility] [address] [place] [id number], * LC HCV ANTIBODY RFX TO QUANT PCR (01/27/2023 9:54 AM CDT) HCV Ab Non Reactive Non Reactive 01/29/2023 9:06 PM CDT [facility] Blood BLOOD SPECIMEN / Unknown Venipuncture / Unknown 01/27/2023 9:54 AM CDT 01/27/2023 9:59 AM CDT Narrative [facility] - 01/29/2023 9:06 PM CDT Performed at: ??[address] ??[id number] De Icer: Juan Ulloa MD, Phone: ??[phone] Blaise Whitaker MD LABORATORY [facility] ([facility]) [address] [place] [id number], * COLONOSCOPY (12/24/2016 11:07 AM CDT) 12/24/2016 [...] adequate candidate for conscious sedation. The [id number] was passed through the anus and advanced [...] reponse to care. [facility] flow[facility] and nursing notes for [...] Recently Relevant to Health Maintenance Care Teams Renal Dietitian Relationship Specialty Start Date End Date Blaise Whitaker MD [address] [place] [address] PCP - General Family Practice 01/27/23
[2024-07-03 17:48] LABS: TSH With Reflex to FT4* 0.734 uIU/mL (0.270-4.200)
== END 2024-07-03 18:27 | disposition home or self-care (01) ==
PROVIDERS: Emergency Provider Emergency Medicine; PCP Family Medicine
DX: R00.2 Palpitations (principal)
CPT/HCPCS: 36415; 80048; 83735; 84443; 85025; 99284

== ENCOUNTER 2024-08-13 06:15 | Emergency (ER) | payer BC, SELFPAY ==
--- OUTSIDE RECORDS SUMMARY | 2024-08-13 06:16 | XMS_ITS | Data Portability ---
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 He was given an opportunity to ask questions related to the above information. [email or web address] Not available 09/26/2023 12:36:57 12/11/2023 12/11/2023 After a thorough discussion of the preparation, procedure details, risks, possible complications, post-operative care and instructions the patient wishes to proceed with vasectomy. He was given an opportunity to ask questions related to the above information. [email or web address] Not available 12/08/2023 16:09:02 Plan of Treatment Reminders Order Date Submit Date Provider Last Modified By Organization Details Last Modified Time Details Appointments None recorded. Lab None recorded. Referral None recorded. Procedures None recorded. Surgeries None recorded. Imaging None recorded. Medication Orders diazepam 10 mg tablet 2023 024 [facility][id number], [address], [place], [address], 13:26:50 Patient TargetsNo targets recorded. Patient Instructions Encounter Date Encounter Id Patient Instructions Last Modified By Organization Details Last Modified Time 09/29/2023 [id number] SURGICAL ELECTIV E STERILIZATION: VASECTOMY WHAT IS A VASECTOMY? A vasectomy makes a man sterile by obstructing the flow of sperm through the vas deferens. A small puncture in the scrotum is used to isolate a section of the vas deferens. A small portion of the vas deferens is then removed and the vas is occluded. The procedure is typically performed in the office using a local anesthesia, but can be performed at a surgery center under sedation. (Please check with your insurance carrier if you would like sedation, to make sure you qualify.) After a vasectomy it takes at least 3 months to completely clear your ejaculation of sperm. We provide you with a container for a semen analysis to prove that your vasectomy has been successful (Note: some men have to leave multiple samples to show that their vasectomy has been successful. Please see the [facility] Post-Vasectomy Instruction Sheet for additional details). We believe that proving your sterility is your responsibility. We try to make it easy for you, but you are responsible for collecting and bringing your sample to our office. You must continue to use other forms of contraception until you prove that your vasectomy has been successful. SCHEDULING A VASECTOMY Scheduling a vasectomy is easy. It will consist of a brief office visit with a surgeon to discuss the risks of the procedure and so the surgeon can make sure that you are a good candidate for a vasectomy. Once you are medically cleared and questions are answered, another appointment is made for the actual procedure. POSSIBLE RISKS FROM HAVING A VASECTOMY 1. Recanalization: This word means spontaneous reconnection of the vas deferens and failure of the vasectomy. This complication is rare. Although it can occur at any time, even years later, it most often occurs during the first 6-8 weeks after the procedure. We can t say this enough: Patients must prove that they are sterile by providing semen samples void of sperm before discontinuing other forms of control. 2. : Believe it or not, there are patients who prove they have no sperm in their semen but still father a child. The rate of after a successful vasectomy reported in literature is 0.05% or less. 3. Infection: Uncommon, and usually mild. Most often it can be treated with antibiotics. 4. Bleeding: Usually mild, although a large blood clot called a hematoma can develop and typically resolve by itself. 5. Pain: Pain usually lasts several days and goes away. Pain that lasts months to years is rare. 6. Sperm Granuloma: This is a small scar that sometimes forms where the vas is cut and is not harmful. 7. Sperm Antibodies: These antibodies help the body get rid of the sperm. They are not harmful to you but may make it difficult to achieve if you have the vasectomy reversed. PREPARING FOR A VASECTOMY How to choose a good appointment time: Carve a few days out of your busy schedule when you can recover. Too many men try to go back to normal activities too soon. Men with desk-jobs can usually go back to work after a weekend; men who do heavy labor may want to have a full week set aside to recover. Most men won t need that sort of time, but for those who do it is nice to have. Seven days before the procedure: Stop taking aspirin, ibuprofen (Advil, Motrin), vitamin E, herbal supplements, or any medication that you take to thin the blood. If you are on Warfarin, Coumadin or Plavix, call you physician regarding these medications. Make sure you have some tight underwear or a jock strap to bring to the vasectomy appointment. Wearing supportive underwear for a few days rather than boxers helps to prevent swelling. Buy some triple antibiotic ointment (Bacitracin, Neosporin, generic) to put on the puncture sites. You won t need a big tube because the incisions are small and you only need to put it on for a few days. The day of the procedure: Eat normally unless you are being anesthetized. Please shower or wash the scrotum before the procedure to help reduce the risk of infection. Remember to bring the supportive underwear or jock strap so you can wear it home. Having someone drive you is only mandatory if you are being sedated. AFTER YOUR VASECTOMY Go home. Relax. Plan on being lazy for at least [address] an ice pack on the scrotum (one hour on/one hour off-do not put ice directly on the skin) to minimize swelling. You may shower after 24 hours. Be careful in the shower if you are taking any new prescription medication for the vasectomy, such as narcotic pain medication. Do not lift anything over 20 pounds for seven days. After that, use your judgment. A good rule of thumb: if you are wondering if you should, you probably shouldn t . Resume normal activity slowly. Wait at least seven days before resuming sexual activity, preferably two weeks. It is normal to have discomfort with sex initially. Don t worry, that gets better quickly. It takes some men a few weeks to start feeling totally normal, so be patient. Don t worry about calling with questions if you don t think you are healing well enough; most of the time you just need a little reassurance. Issues that require a phone call are: fever above 100.5; bleeding that doesn t stop for a couple hours after the procedure; progressive scrotal swelling; incision drainage; pain that cannot be controlled with pain medication. A FINAL REMINDER You are not sterile until your semen is completely free of sperm. You must take the responsibility to bring samples into our office to prove your vasectomy is a success. If you follow the instructions above it should be. Not available 09/29/2023 09:18:40 12/11/2023 [id number] AFTER YOUR VASECTOMY Go home. Relax. Plan on being lazy for at least [address] ice pack on the scrotum (one hour on/one hour off-do not put ice directly on the skin) to minimize swelling. You may shower after 24 hours. Be careful in the shower if you are taking any new prescription medication for the vasectomy, such as narcotic pain medication. Do not lift anything over 20 pounds for seven days. After that, use your judgment. A good rule of thumb: if you are wondering if you should, you probably shouldn t . Resume normal activity slowly. Wait at least seven days before resuming sexual activity, preferably two weeks. It is normal to have discomfort with sex initially. Don t worry, that gets better quickly. It takes some men a few weeks to start feeling totally normal, so be patient. Don t worry about calling with questions if you don t think you are healing well enough; most of the time you just need a little reassurance. Issues that require a phone call are: fever above 100.5; bleeding that doesn t stop for a couple hours after the procedure; progressive scrotal swelling; incision drainage; pain that cannot be controlled with pain medication. A FINAL REMINDER You are not sterile until your semen is completely free of sperm. You must take the responsibility to bring samples into our office to prove your vasectomy is a success. If you follow the instructions above it should be. Not available 12/11/2023 13:47:31 Reason for Referral None Reported. Procedures Surgical History Date Name Laterality Status Provider Name and Address Organization Details Recorded Time 12/11/19 24 RU Vasectomy completed Hilton Casey MD [address] [facility],[address], [place], [address], [facility] 12/11/2023 13:47:17 [facility] 12:26:37 Hernia Repair completed Jacque Kong [facility] 09/29/2023 12:26:43 Cataract Surgery [facility] 09/29/2023 12:26:51 procedure on esophagus completed Jacque Kong [facility] 09/29/2023 12:27:05 Imaging Results None recorded. Procedure Notes None recorded. Medical Equipment None Reported. Allergies No known drug allergies Medications Name Sig Start Date Stop Date Status Note LastModified by Organization Details LastModified Time alprazolam 1 mg tablet PLEASE SEE ATTACHED FOR DETAILED DIRECTION S 09/29 completed Not Available Not Available Not Available metoprolol succinate ER 50 mg tablet,exte nded release 24 hr TAKE 1 TABLET BY MOUTH EVERY DAY active Not Available Not Available No t Available famotidine 40 mg tablet TAKE 1 TABLET BY MOUTH EVERYDAY AT BEDTIME active Not Available Not Available No t Available omeprazole 40 mg capsule,del ayed release TAKE 1 CAPSULE BY MOUTH 2 TIMES A DAY BEFORE BREAKFAST AND DINNER. active Not Available Not Available No t Available levothyroxi ne 100 mcg tablet TAKE 1 TABLET (100MCG) BY MOUTH BEFORE BREAKFAST FOR THYROID active Not Available Not Available No t Available diazepam 10 mg tablet TAKE 1 TABLET BY ORAL ROUTE DIRECTED. TAKE UPON ARRIVAL FOR IN-OFFICE PROCEDURE active Not Available Not Available No t Available doxycycline hyclate 100 mg tablet TAKE 1 TABLET (100 MG) BY MOUTH TWICE A DAY FOR 10 DAYS 09/29 completed Not Available Not Available Not Available levothyroxi ne 112 mcg tablet TAKE 1 TABLET (112 MCG) BY MOUTH BEFORE BREAKFAST . FOR THYROID. 09/29 completed Not Available Not Available Not Available rosuvastati n 20 mg tablet TAKE 1 TABLET (20 MG) BY MOUTH AT BEDTIME. FOR CHOLESTER OL. active Not Available Not Available No t Available Vitals Date Recorded Body height Body mass index (BMI) Body weight Provider Name and Address Organization Details Last Updated DateTime 09/29/2023 177.8 cm 27.3 kg/m2 40834.55 g Jacque Dilan [facility] 09/29/2023 12:25:09 Social History Question Answer Notes LastModified by Organizat ion Details LastModified Time Tobacco Smoking Status Never Smoker Jacque abad, [facility] 09/29/2023 12:26:28 What Is Your Level Of Alcohol Consumption? None Information not available 09/29/2023 What Is Your Level Of Caffeine Consumption? Occasional Information not available 09/29/2023 What Was The Date Of Your Most Recent Tobacco Screening? 09/29/2023 Information not available 09/29/2023 Do You Use Any Illicit Or Recreational Drugs? No Information not available 09/29/2023 Has Tobacco Cessation Counseling Been Provided? No Information not available 09/29/2023 Do You Or Have You Ever Used Any Other Forms Of Tobacco Or Nicotine? No Information not available 09/29/2023 Sex: Unknown Functional Status None recorded. Mental Status None recorded. Family History Nothing Reported. Medical History Condition Response GERD/Acid Reflux Y Other Y Cancer Y High Cholesterol Y Immunizations Vaccine Type Date Status Note Provider Nam e and Address Organization Details Recorded Time COVID-19, mRNA, LNP-S, PF, 30 mcg/0.3 mL dose 1 completed Jacque abad, [facility] 09/29/2023 12:25:16 COVID-19, mRNA, LNP-S, PF, 30 mcg/0.3 mL dose 1 completed Jacque abad, [facility] 09/29/2023 12:25:16 COVID-19, mRNA, LNP-S, PF, 30 mcg/0.3 mL dose 1 completed Jacque abad, [facility] 09/29/2023 12:25:16 [facility] 12:25:16 Influenza, split virus, trivalent, preservative 8 completed Jacque Kong null, [facility] 09/29/2023 12:25:16 Td (adult), 2 Lf tetanus toxoid, preservative free, adsorbed 4 completed Jacque abad, [facility] 09/29/2023 12:25:16 Influenza, split virus, quadrivalent, PF 2 completed Jacque abad, [facility] 09/29/2023 12:25:16 Past Encounters Encounter ID Performer Location Encounter Start Date Encounter Closed Date Diagnosis/Indication Diagnosis SNOMED-CT Code Diagnosis ICD10 Code [id number] MD DANO [facility] [address] [place] [id number] 09/29/2023 12:05:42 09/29/2023 16:32:41 Contraception care management 635999618 Z30.09 [id number] MD DANO [facility] [address] [place] [id number] 12/11/2023 13:40:33 12/15/2023 11:40:27 Contraception care management 569727261 Z30.09 Health Concerns Section Related Observation LastModified by Organization Detai ls LastModified Time None Recorded Concern Status LastModified by Organization Details LastModified Time None Recorded Advance Directives Directive None Recorded Payers Encounter Date Sequence Insurance Name Policy Number Policy Marie Covered Member ID Marie Member ID Guarantor Name 09/29/2023 1 [place] [id number] Garth Prasad [id number] Garth Prasad 12/11/2023 1 [place] [id number] Garth Prasad [id number] Garth Prasad Notes Date Note Type Note Provider Name and Address Organization Details Recorded Time 09/29/2023 text/html The patient is h ere to discuss a vasectomy. He has children, and is certain that he and his mate do not want to conceive any more. He understands that a vasectomy is intended to be permanent. The patient understands that while vasectomy reversal is possible, after a vasectomy reversal is not assured. He also understands that a vasectomy reversal is almost always associated with a large, [id number]-fstwea cost. He does understand that reestablishment of sperm flow through the vas deferens is extremely rare but possible and may result in an unexpected at any time after his vasectomy. Furthermore, he understands that control must be used after vasectomy is performed until He is cleared for unprotected intercourse. He has read the Vasectomy Patient Info Book provided to him and was given an opportunity to answer questions related to the procedure and post-op care. Hilton Casey MD [address] [place] [address],[address], [place], [address], [facility] 09/29/2023 13:27:11 12/11/2023 text/html The patient is h ere to discuss a vasectomy. He has children, and is certain that he and his mate do not want to conceive any more. He understands that a vasectomy is intended to be permanent. The patient understands that while vasectomy reversal is possible, after a vasectomy reversal is not assured. He also understands that a vasectomy reversal is almost always associated with a large, [id number] cost. He does understand that reestablishment of sperm flow through the vas deferens is extremely rare but possible and may result in an unexpected at any time after his vasectomy. Furthermore, he understands that control must be used after vasectomy is performed until He is cleared for unprotected intercourse. He has read the Vasectomy Patient Info Book provided to him and was given an opportunity to answer questions related to the procedure and post-op care. 12/11/2023:Here for vasectomy, all questions answered prior to onset of procedure. Hilton Casey MD [address] [place] [address],[address], [place], [address], [facility] 12/11/2023 22:51:51
[2024-08-13 06:31] VITALS: BP 144/81; PULSE 88; RESP 16; TEMP 36.1; O2SAT 97; BMI 26.1
--- NOTE | 2024-08-13 06:39 | ED_ITS ---
HPI - Arrhythmia/Palpitations General Chief Complaint: Arrhythmia/Palpitations Stated Complaint: Afib Time Seen by Provider: 08/13/24 06:25 History of Present Illness HPI narrative: Patient is a 59-year-old gentleman comes in today after awakening with in irregular heartbeat. He has had no chest pain or shortness a breath orthopnea no PND. He has a long history of palpitations as well as intermittent atrial fibrillation. Patient does see a internal communications intern regularly any is on Toprol-XL. Patient has been told that he is not a candidate for anticoagulation as he has a low Kye Vasc score according to his internal communications intern. Again he has no further symptoms but just feels like an irregular pulse. Related Data Home Medications ?Medication ?Instructions ?Recorded ?Confirmed famotidine 40 mg tablet 40 mg PO QPM 06/20/23 07/20/23 levothyroxine 100 mcg tablet 100 mcg PO QAM disorder of thyroid 06/20/23 07/20/23 gland omeprazole 40 mg capsule,delayed 40 mg PO BID 06/20/23 07/20/23 release rosuvastatin 20 mg tablet 20 mg PO QPM cholesterol 06/20/23 07/20/23 Previous Rx's ?Medication ?Instructions ?Recorded metoprolol succinate 50 mg 50 mg PO DAILY #30 tabs 06/20/23 tablet,extended release 24 hr (Toprol XL) Allergies Allergy/AdvReac Type Severity Reaction Status Date / Time No Known Drug Allergies Allergy Verified 07/03/24 16:12 Review of Systems Status of ROS: Reports: 10 or more systems reviewed and unremarkable except as noted in History and below PFSH PFSH Social History Smoking Status: Never smoker Do you use any of these nicotine containing products: None How often do you have a drink containing alcohol: never How often do you have six or more drinks on one occasion: Never AUDIT-C Alcohol total score: 0 Non-prescribed substance use: denies use Exam Narrative: Exam Narrative: EXAM GENERAL: Patient appears comfortable and well. EYES: No scleral icterus. LYMPH: No supraclavicular or cervical lymphadenopathy. SKIN: Visible skin seen during exam normal or with benign process only. EXT: No dependent lower extremity pedal edema. HEART: Irregularly irregular no rubs clicks gallops or murmurs. LUNGS: Clear to auscultation bilaterally with no crackles or wheezes. ABD: Soft, non tender, non distended. PSYCH: Good eye contact, speech is not pressured. Const: Vital Signs, click to edit/add: Vital Signs - 24 hr 08/13/24 06:31 Temperature 96.9 F L Pulse Rate [Left P ulse Oximeter] 88 Respiratory Rate 16 Blood Pressure [Ri ght Upper Arm] 144/81 H Pulse Oximetry 97 Oxygen Delivery Me thod Room Air Course Course ED Course: Patient seen and examined. EKG ordered. Vital Signs Vital signs: Initial Vital Signs Temperature 96.9 F L 08/13/24 06:31 Temperature Source Temporal Artery Scan 08/13/24 06:31 Pulse Rate 88 08/13/24 06:31 Pulse Rhythm Regular 08/13/24 06:31 Respiratory Rate 16 08/13/24 06:31 Blood Pressure 144/81 H 08/13/24 06:31 Blood Pressure Mean 102 08/13/24 06:31 Blood Pressure Position Sitting 08/13/24 06:31 Pulse Oximetry 97 08/13/24 06:31 Oxygen Delivery Method Room Air 08/13/24 06:31 Vital Signs Temperature 96.9 F L 08/13/24 06:31 Pulse Rate 88 08/13/24 06:31 Respiratory Rate 16 08/13/24 06:31 Blood Pressure 144/81 H 08/13/24 06:31 Pulse Oximetry 97 08/13/24 06:31 Oxygen Delivery Method Room Air 08/13/24 06:31 Temperature 96.9 F L 08/13/24 06:31 Pulse Rate 88 08/13/24 06:31 Respiratory Rate 16 08/13/24 06:31 Blood Pressure 144/81 H 08/13/24 06:31 Pulse Oximetry 97 08/13/24 06:31 Oxygen Delivery Method Room Air 08/13/24 06:31 MDM - Arrhythmia/Palpitations MDM Narrative Medical decision making narrative: Patient is a 59-year-old gentleman who comes in today with palpitations. He has a personal history of paroxysmal atrial fibrillation and his EKG today demonstrates atrial fibrillation rate 85-105. Patient has seen Cardiology in the past and they elected not to place him on anticoagulation due to his low chads Vasc score he is on Toprol-XL. I do not believe further intervention or workup is needed as the patient has longstanding paroxysmal atrial fibrillation and his rate is controlled. Shows no signs of congestive heart failure. I did ask him to contact his internal communications intern about next steps. He will report any change in his symptoms and his chest pain shortness a breath orthopnea or PND. Patient discharged home. Discharge Plan Discharge Clinical Impression: Atrial fibrillation Patient Disposition: Home, Self-Care Condition: Stable Instructions: A-fib (Atrial Fibrillation) (ED) Additional Instructions: Continue current medications Contact your internal communications intern to discuss further intervention if needed Report any change in symptoms. Activity Level: No Restrictions Discharge Diet: Regular Prescriptions: No Action famotidine 40 mg tablet 40 mg PO QPM omeprazole 40 mg capsule,delayed release(DR/EC) 40 mg PO BID levothyroxine 100 mcg tablet 100 mcg PO QAM rosuvastatin 20 mg tablet 20 mg PO QPM metoprolol succinate [Toprol XL] 50 mg tablet extended release 24 hr 50 mg PO DAILY Qty: 30 0RF Follow Up/Referrals: Blaise Whitaker MD [Primary Care Provider] - Stand Alone Forms: [facility] Info Instructions
[2024-08-13 06:54] VITALS: BP 136/103; PULSE 89; O2SAT 94
== END 2024-08-13 07:06 | disposition home or self-care (01) ==
PROVIDERS: Emergency Provider Internal Medicine; PCP Family Medicine
DX: I48.91 Unspecified atrial fibrillation (principal)
CPT/HCPCS: 93005; 99283; 99284